=== PATIENT | female | born 2005 | race Caucasian/White ===

== ENCOUNTER 2024-04-18 12:03 | Emergency (ER) | payer OTHER ==
[2024-04-18 12:21] VITALS: BP 135/76; O2SAT 98
--- NOTE | 2024-04-18 12:40 | ED Physician Documentation ---
PD HPI SKIN - Stated complaint Stated Complaint: BILAT ARM RASH,REDNESS - Chief complaint Chief Complaint: Allergic Rx - History obtained from History obtained from: Patient, Family - Additional information Additional information: The patient is brought to the emergency department by her parents for chief complaint of itchy rash that she first noticed this morning. The patient states that she was not exposed to anything that she knows of that is new or that she is allergic to. Her only history of allergy is amoxicillin at which time she was a young child and got hives. The patient states that she noticed some raised red patches on her arm and that over the course the morning, she developed intensely erythematous red patches on her neck, left thigh, and mirror images on either side of her antecubital fossa on the left. She states that the areas were itchy at first but now just the redness. She denies any swelling of her oropharyngeal structures and no difficulty breathing or swallowing. The patient has not been ill with anything recently. She is not on any medications. No new products whatsoever. She works at [employer] and is not aware of them using anything unusual. No other complaints at this time. That a coworker at [employer] told her that this is the kind of rash that she got before she was diagnosed with lupus and the patient is concerned about this now. PD PAST MEDICAL HISTORY - Past Medical History Past Medical History: No Cardiovascular: None Respiratory: None Neuro: None Endocrine/Autoimmune: None GI: None [employer]PER[employer]: None : None HEENT: None Psych: None Musculoskeletal: None Derm: None - Past Surgical History Past Surgical History: No - Present Medications Home Medications: Ambulatory Orders Medication Instructions Recorded Confirmed predniSONE [Deltasone] 60 mg PO DAILY 3 Days #9 tablet 04/18/24 - Allergies Allergies/Adverse Reactions: Allergies Allergy/AdvReac Type Severity Reaction Status Date / Time amoxicillin AdvReac Hives Verified 04/18/24 12:12 - Social History Does the pt smoke?: No Smoking Status: Never smoker Does the pt drink ETOH?: No Does the pt have substance abuse?: No - Immunizations Immunizations are current?: Yes - POLST Patient has POLST: No PD ED PE NORMAL - Vitals Vital signs reviewed: Yes - General General: Alert and oriented X 3, No acute distress, Well developed/nourished - HEENT HEENT: Atraumatic, EOMI, Moist mucous membranes, Pharynx benign (No oropharyngeal edema.) - Neck Neck: Supple, no meningeal sign - Cardiac Cardiac: RRR, No murmur, Strong equal pulses - Respiratory Respiratory: No respiratory distress, Clear bilaterally - Derm Derm: Warm and dry, Other (Markedly erythematous patches on flexor surface of bilateral arms including mirror image patches on left arm about the antecubital fossa. Patches are large, up to several centimeters in each dimension. Minimal skin edema on some.) - Extremities Extremities: No deformity - Neuro Neuro: Alert and oriented X 3 - Psych Psych: Normal mood, Normal affect Results - Vitals Vitals: Vital Signs - 24 hr 04/18/24 12:09 Temperature 36.5 C Heart Rate 79 Respiratory 18 Rate Blood Pressure 135/76 H O2 Saturation 98 Oxygen O2 Source Room air PD Medical Decision Making - ED course Complexity details: considered differential, d/w patient, d/w family ED course: I discussed with the patient and her family that at this point, the rash is extremely nonspecific and I have no idea what is causing it. The patient cannot pinpoint any potential trigger anything that is new or unusual and she has no other concerning symptoms whatsoever. I did explain to her that this rash is not at all typical of lupus and that it certainly would not be something that we would jump to without any other prior symptoms. However, if the rash does become recurrent, the patient is advised to follow-up with her primary care physician and possibly, and dermatology, to try to get to the bottom of it. The patient has shown me a picture of her raised rash when she first woke up this morning and it does very much appear to be urticarial at that time. I have advised the patient to use Benadryl and I have also prescribed her a steroid. We have discussed the need for keeping a log of exposures in case this becomes a recurrent issue. I have answered all of the parents' questions. Departure - Departure Disposition: 01 Home, Self Care Clinical Impression: Rash and nonspecific skin eruption Condition: Stable Instructions: ED Drug React Allergic Prescriptions: predniSONE [Deltasone] 60 mg PO DAILY 3 Days #9 tablet Comments: Your rash is nonspecific and is not associated with any other symptoms that are of concern. It is important that you keep a log of things were exposed to if you are having a reactive type rash, which this appears to be. Even if they are things that are common to you or places that you commonly go, it is important to try to establish a pattern so that if this happens in the future, you can begin to narrow down what might be causing it. As far as the concern over lupus, this rash is not at all typical of lupus and as such, the likelihood of this is low. However, if you do develop any joint pains or if the rash becomes recurrent, you will need to talk to your primary doctor about further testing to get to the bottom of your symptoms and this is something that can be revisited at that time. For now, you may take Benadryl 25 to 50 mg every 6 hours and the steroid that has been prescribed, as directed. A prescription for this has been electronically transmitted to the [facility] pharmacy in [place]. Please pick it up today and begin taking it.
== END 2024-04-18 13:08 | disposition home or self-care (01) ==
LOC: ED 12:03
DX: R21 Rash and other nonspecific skin eruption (principal)
CPT/HCPCS: 99282; 99283